=== PATIENT | male | born 1950 | race Caucasian/White ===

== ENCOUNTER 2020-09-04 10:00 | Outpatient (RCR) | payer MEDICARE, SELFPAY ==
--- NOTE | 2020-08-05 13:52 | PTOPEVAL ---
Thank you for referring Hugo Roberts to [facility].? The patient is scheduled to be seen for therapy? 2 x/week for 8 weeks. Please review, sign, date and return this plan of care BRODERICK. I agree with and certify that the following plan of care is medically necessary. Referring Physician Date Attending Provider: Yohana Cooper MD *PT Outpatient Evaluation Start: 08/05/20 12:30 Freq: Status: Active Protocol: Document 08/05/20 12:31 KEILY (Rec: 08/05/20 13:34 CAP [id number]) Therapy Assessment Status Assessment Status Assessment Status Evaluation Outpatient Past Medical History Past Medical History Source of Past Medical History Patient Neurological History Hx Neurological Disorders No Significant History Respiratory History Hx Bronchitis Yes Hx Sleep Apnea Yes: CPAP Gastrointestinal History Hx Gastroesophageal Reflux Disease Yes Musculoskeletal History Hx Joint Replacement Yes: left shoulder replacement 07/01, tod TKR Hx Other Musculoskeletal Disorders Yes: C5-6 bulging disc, C6-7 bulging Endocrine History Hx Diabetes Yes: type 2 Other History Hx Cancer Yes: nose Evaluation Information Problem Diagnosis neck pain with radicular symptoms, tod shoulder pain Onset Jul 2020 Cause lifting Subjective Information Progression of right UE Query Text:As Reported By Patient/ symptoms after building a wc Family ramp with lifting of ply wood. He C/o numbness and tingling from radiating from shoulder/ elbow region to last 3 fingers. He received cortison injection of right shoulder 07/23/20 with good relief of shoulder pain. He c/o increased right UE symptoms with lifting and carrying objects with right UE. Denies any pain or symptoms into left UE. Symptoms increased with repeated right UE activities. 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 The pain was waking him prior to the injection. Denies problems with reaching activities. right shoulder: denies any
--- NOTE | 2020-09-02 09:06 | PCPTNOTE ---
Patient called & cancelled scheduled appointment this date due to bad weather.
--- NOTE | 2020-09-04 11:00 | PTOPEVAL ---
Thank you for referring Hugo Roberts to [facility].? The patient has been seen for 7 therapy visits to address neck and shoulder limitations. He demonstrates improved symptoms and pain. Improved tolerance with daily activities, but limited changes with joint motion. He is indep with his home exercise program at this time. He has reached maximal potential with skilled therapy services at this time. DC skilled PT with pt to continue with home program. Please review, sign, date and return discharge summary. I agree with and certify that the following plan of care is medically necessary. Referring Physician Date Attending Provider: Yohana Cooper Physical Therapy Discharge Note Problem Diagnosis neck pain with radicular symptoms, tod shoulder pain Onset Jul 2020 Cause lifting Additional Evaluation Detail He received cortison injection of right shoulder 07/23/20 with good relief of shoulder pain. Subjective Information He reports cont tingling/ Query Text:As Reported By Patient/ numbness of last 3 fingers, Family but decreased raditing symptoms from elbow region. He denies increased right UE symptoms with lifing and carrying objects with right UE. He has neck tightness with prolonged sitting > 1 hr. right shoulder: denies any pain of right shoulder with reaching, carrying or heavier household activities. Improved tenderness of ant and post aspect of shoulder joint. left shoulder: c/o chronic weakness of left shoulder and tenderness of left bicep as residual effect of his shoulder surgery in 2014. Pain Assessment Right Arm(s) Reported Pain Level 0 Pain Description Aching Pain Frequency Intermittent Greatest Pain Intensity 1 Pain Aggravating Factors Exercise/Activity Bilateral Neck Reported Pain Level 0 Pain Frequency Intermittent Lowest Pain Intensity 0 Greatest Pain Intensity 0 Left Shoulder(s) Reported Pain Level 1 Cervical and Lumbar ROM Cervical Flexion (0-60) 70 Query Text:Active in Degrees Cervical Extension (0-70) 60 Query Text:Active in Degrees Cervical Lateral Flexion Right (0-50) 18 Query Text:Active in Degrees Cervical Lat
== END 2020-09-04 14:25 | disposition home or self-care (01) ==
LOC: ANHPT 10:00
PROVIDERS: PCP Internal Medicine
DX: M54.2 Cervicalgia (principal); M54.12 Radiculopathy, cervical region; M67.912 Unspecified disorder of synovium and tendon, left shoulder; M25.511 Pain in right shoulder; M25.512 Pain in left shoulder; M75.81 Other shoulder lesions, right shoulder; G89.29 Other chronic pain; Z96.612 Presence of left artificial shoulder joint
CPT/HCPCS: 97012; 97014; 97110; 97140; 97162; G0283

== ENCOUNTER 2021-03-16 00:40 | Day surgery (SDC) | payer MEDICARE, SELFPAY ==
[2021-03-04 12:38] VITALS: BMI 37.3
--- NOTE | 2021-03-13 15:43 | P.PNAN_ITS ---
Anes - Initial Pre Proc Eval Procedure: Operation Date: 03/16/21 08:00 Proposed Procedures p Screening Colonoscopy - Jae Amador MD Date/Time: 03/13/21 15:43 Surgeon: Jae Amador MD Pre Op Diagnosis: hx of colon polyps Patient Data Age: 71 Gender: M Height: 1.78 m Weight: 118.2 kg Allergies Allergy/AdvReac Type Severity Reaction Status Date / Time No Known Drug Allergies Allergy Mild Unknown Verified 03/16/21 06:47 Home Medications Medication Instructions Recorded Confirmed Type acai kowalski extract 500 mg capsule 500 mg PO DAILY 05/22/20 03/04/21 History ascorbate calcium (vitamin C) 500 500 mg PO BID 05/22/20 03/04/21 History mg tablet lisinopril 20 mg tablet 20 mg PO DAILY 05/22/20 03/04/21 History loratadine 10 mg tablet 10 mg PO DAILY 05/22/20 03/04/21 History metformin 1,000 mg tablet 1,000 mg PO DAILY 05/22/20 03/04/21 History multivitamin,ka-qkdk-knboplns 1 tablet PO DAILY 05/22/20 03/04/21 History omeprazole 40 mg capsule,delayed 40 mg PO DAILY PRN 05/22/20 03/04/21 History release pravastatin 40 mg tablet 40 mg PO DAILY 05/22/20 03/04/21 History vit C,E,zinc,copper-bkcmw2q 250 1 cap PO DAILY 05/22/20 03/04/21 History mg-lutein 5 mg-zeaxanthin 1 mg capsule azelastine 1 spray INTRANASAL Q12H PRN 03/04/21 03/04/21 History fluticasone propionate 2 spray INTRANASAL BID PRN 03/04/21 03/04/21 History Patient hx anesthesia problems: none Family hx anesthesia problems: none [facility] Past Medical History Medical History (Updated 03/13/21 @ 15:44 by Artis Zepeda DO) Diabetes type 2, controlled GERD (gastroesophageal reflux disease) Hyperlipidemia Hypertension KOBE (obstructive sleep apnea) Surgical History Surgical History (Updated 03/13/21 @ 15:44 by Artis Zepeda DO) History of cholecystectomy Family History Family History Father Cerebrovascular accident Sibling Malignant neoplasm of prostate Mother Diabetes mellitus Other Family history of multiple sclerosis Social History Social History Smoking packs per day: 2 Smoking cigarettes per day: 40.0 Years smoked: 30 Smoking pack-years: 60.00 Smoking status: Former smoker Tobacco type: cigarettes Second hand tobacco smoke exposure: No Smoking end date: 07/18/89 Alcohol intake: former Substance use: never Substance use type: does not use Living arrangements: with family Spiritual care concerns: No Anes - Eval Final PreProcedure Day of Procedure 03/13/21 15:43 Patient weight: obese Heart: regular rate and rhythm Lungs: clear to auscultation and normal air movement Airway: Mallampati scale class II Neurological: alert and oriented Last oral intake: >/= 8 hours ASA classification: III Emergent: no Anesthetic plan: proceed Anesthesia type and monitoring: general GIVS and standard monitoring Informed Consent: The patient's anesthetic plan and its attendant risks and benefits were discussed with the patient/family/POA. Questions were solicited and answers provided to the satisfaction of the patient/family/POA.
[2021-03-16 06:50] VITALS: BP 143/93; PULSE 58; RESP 20; TEMP 36.1; O2SAT 97; BMI 37.0
--- NOTE | 2021-03-16 07:09 | PM.HPGS ---
History of Present Illness History of Present Illness Consent: Risks, benefits, and alternatives have been discussed and questions answered. Patient agrees to proceed with procedure. Chief complaint: hx of colon polyps Narrative: Hugo Roberts is a 71 year old male has had a change in bowel habits. His stools have been very loose for the past year or so. He does take metformin which may be a factor in fact when he stopped taking that on a trip his bowel movements were more normal. He has history of having had polyps removed in the past. Review of Systems Review of Systems: All systems reviewed & are unremarkable except as noted in HPI and below PMFSH Past Medical History Medical History Diabetes type 2, controlled GERD (gastroesophageal reflux disease) Hyperlipidemia Hypertension KOBE (obstructive sleep apnea) Surgical History Surgical History History of cholecystectomy Family History Family History Father Cerebrovascular accident Sibling Malignant neoplasm of prostate Mother Diabetes mellitus Other Family history of multiple sclerosis Social History Social History Smoking packs per day: 2 Smoking cigarettes per day: 40.0 Years smoked: 30 Smoking pack-years: 60.00 Smoking status: Former smoker Tobacco type: cigarettes Second hand tobacco smoke exposure: No Smoking end date: 07/18/89 Alcohol intake: former Substance use: never Substance use type: does not use Living arrangements: with family Spiritual care concerns: No Meds Home Medications and Allergies Home Medications Medication Instructions Recorded Confirmed Type acai kowaslki extract 500 mg capsule 500 mg PO DAILY 05/22/20 03/16/21 History ascorbate calcium (vitamin C) 500 500 mg PO BID 05/22/20 03/16/21 History mg tablet lisinopril 20 mg tablet 20 mg PO DAILY 05/22/20 03/16/21 History loratadine 10 mg tablet 10 mg PO DAILY 05/22/20 03/16/21 History metformin 1,000 mg tablet 1,000 mg PO DAILY 05/22/20 03/16/21 History multivitamin,oh-jggg-vpbwdiec 1 tablet PO DAILY 05/22/20 03/16/21 History omeprazole 40 mg capsule,delayed 40 mg PO DAILY PRN 05/22/20 03/16/21 History release pravastatin 40 mg tablet 40 mg PO DAILY 05/22/20 03/16/21 History vit C,E,zinc,copper-umcer1k 250 1 cap PO DAILY 05/22/20 03/16/21 History mg-lutein 5 mg-zeaxanthin 1 mg capsule azelastine 1 spray INTRANASAL Q12H PRN 03/04/21 03/16/21 History fluticasone propionate 2 spray INTRANASAL BID PRN 03/04/21 03/16/21 History Allergies Allergy/AdvReac Type Severity Reaction Status Date / Time No Known Drug Allergies Allergy Mild Unknown Verified 03/16/21 06:47 Vital Signs Vital Signs - 24 hr 03/16/21 06:50 Temperature 36.1 C L Pulse Rate 58 L Respiratory Rate 20 Blood Pressure 143/93 H Pulse Oximetry 97 Exam Resp: Auscultation: clear to auscultation bilaterally Cardio: Rate: regular rate Rhythm: regular rhythm GI: GI Palp: Yes Soft to palpation and No Tenderness to palpation present (GI) Assessment and Plan Assessment and plan (1) Chronic diarrhea: Code(s): K52.9 - Noninfective gastroenteritis and colitis, unspecified Status: Acute Assessment and Plan: Colonoscopy with possible biopsy or polypectomy or cautery or injection of substances.
[2021-03-16] MEDS: LACTATED RINGERS 1,000 ML 150 ML IV CONT (07:13)
[2021-03-16 07:19] LABS: Glucose Point of Care 135 mg/dl (65-105)
[2021-03-16] MEDS: SIMETHICONE ORAL SUSPENSION 20 MG/0.3 ML 30 ML BOTTLE 0.6 ML IRRIGATION (08:11)
[2021-03-16 08:20] VITALS: BP 127/84; PULSE 74; RESP 20; O2SAT 98
[2021-03-16 08:30] VITALS: BP 119/47; PULSE 78; RESP 18; O2SAT 99
[2021-03-16 08:40] VITALS: BP 126/76; PULSE 72; RESP 20; O2SAT 100
== END 2021-03-16 09:00 | disposition home or self-care (01) ==
PROVIDERS: PCP Internal Medicine; Visit Provider Internal Medicine Gastroenterology
PROC: 0DJD8ZZ Inspection of Lower Intestinal Tract, Via Natural or Artificial Opening Endoscopic (ICD-10-PCS; CPT 45378; principal; 2021-03-16 08:00)
DX: Z12.11 Encounter for screening for malignant neoplasm of colon (principal); D12.4 Benign neoplasm of descending colon; K59.1 Functional diarrhea; K57.30 Diverticulosis of large intestine without perforation or abscess without bleeding; E11.9 Type 2 diabetes mellitus without complications; K21.9 Gastro-esophageal reflux disease without esophagitis; I10 Essential (primary) hypertension; E78.5 Hyperlipidemia, unspecified; G47.33 Obstructive sleep apnea (adult) (pediatric); Z79.84 Long term (current) use of oral hypoglycemic drugs; E66.9 Obesity, unspecified; Z68.37 Body mass index [BMI] 37.0-37.9, adult
CPT/HCPCS: 45385; 45380; 82948; 88305; J2704; J7120

== ENCOUNTER → 2023-05-19 12:58 | Outpatient (CLI) | payer MEDICARE, SELFPAY ==
--- NOTE | ~2023-05-19 | CT_ITS ---
EXAMINATION: CT lumbar spine wo con DATE: 05/19/2023 13:15 INDICATION: Chronic low back pain. TECHNIQUE: Computed tomography (CT) of the lumbar spine was performed without intravenous contrast. A utomated exposure control and iterative reconstruction technique were employed. The dose-length produ ct was 918.81 mGy-cm. COMPARISON: None FINDINGS: There is 5 degrees dextrocurvature of lumbar spine. Vertebral body heights are normal. Ther e is mildly decreased disc height at L3-L4 and severely decreased disc height at L4-L5. The following disc levels are specifically discussed: L1-L2: The disc does not extend beyond the endplate margin. There is no facet joint osteoarthritis. T here is no neural foraminal stenosis. There is no central canal stenosis. L2-L3: There is a left foraminal protrusion. There is mild bilateral facet joint osteoarthritis. Ther e is mild left neural foraminal stenosis. There is no central canal stenosis. L3-L4: The disc is bulging. There is severe bilateral facet joint osteoarthritis. There is moderate b ilateral neural foraminal stenosis. There is mild central canal stenosis. L4-L5: The disc is bulging. There is severe bilateral facet joint osteoarthritis. There is moderate b ilateral neural foraminal stenosis. There is moderate central canal stenosis. L5-S1: The disc is bulging. There is severe bilateral facet joint osteoarthritis. There is moderate r ight and mild left neural foraminal stenosis. There is mild central canal stenosis. IMPRESSION: 1. Severe lumbar spondylosis. Reviewed, dictated and finalized at location E.
== END ==
PROVIDERS: PCP Internal Medicine; Visit Provider Internal Medicine
DX: M54.50 Low back pain, unspecified (principal); M47.896 Other spondylosis, lumbar region
CPT/HCPCS: 72131

== ENCOUNTER → 2023-06-17 09:44 | Outpatient (CLI) | payer MEDICARE, SELFPAY ==
--- NOTE | ~2023-06-17 | MR_ITS ---
MRI of the lumbar spine Clinical History: Back pain Technique: Axial T2-weighted images, and sagittal T1-weighted, T2-weighted, and T2 fat-sat images wer e acquired. Findings: There is no fracture of the lumbar spine. There is minimal grade 1 anterolisthesis of L4 ov er L5. No suspicious bone marrow signal abnormality seen. At L1-L2 and L2-L3, there is no significant disc bulge. There is mild to moderate facet arthropathy l evels. No spinal canal stenosis or neural foraminal narrowing at these levels. At L3-L4, there is diffuse disc bulge and advanced facet arthropathy, resulting in severe spinal krish l stenosis/thecal sac compression. There is moderate left neural foraminal narrowing, and moderate to severe right neural foraminal narrowing. At L4-L5, there is severe degenerative disc narrowing. There is disc bulge and severe facet arthropat hy, severe central canal stenosis/thecal sac compression. There is severe bilateral neural foraminal compromise. At L5-S1, there is right foraminal to right paracentral disc bulge with severe facet arthropathy. The re is right lateral recess stenosis and severe right neural foraminal compromise. Left neural foramen preserved. Paravertebral soft tissues are unremarkable. Impression: Severe degenerative spondylosis at L3-L4, L4-L5, and L5-S1, as detailed above. Minimal grade 1 anterolisthesis of L4 over L5. Reviewed, dictated and finalized at [facility] [place]. TURNER Impression: Severe degenerative spondylosis at L3-L4, L4-L5, and L5-S1, as detailed above. Minimal grade 1 anterolisthesis of L4 over L5.
== END ==
PROVIDERS: PCP Internal Medicine; Visit Provider Orthopaedic Surgery
DX: M46.1 Sacroiliitis, not elsewhere classified (principal); M47.26 Other spondylosis with radiculopathy, lumbar region
CPT/HCPCS: 72148

== ENCOUNTER 2023-07-12 12:27 | Emergency (ER) | payer MEDICARE, SELFPAY | END 2023-07-12 13:19 | disposition left against medical advice (07) | LOC: ANHED 12:57 | PROVIDERS: PCP Internal Medicine | DX: Z53.21 Procedure and treatment not carried out due to patient leaving prior to being seen by health care provider (principal) | CPT/HCPCS: 99199 ==

== ENCOUNTER → 2023-07-13 14:53 | Outpatient (CLI) | payer MEDICARE, SELFPAY ==
--- NOTE | ~2023-07-13 | XR_ITS ---
EXAMINATION: XR chest 2V 07/13/2023 15:03 INDICATION: Acute upper respiratory infection PROCEDURE: 2 view chest COMPARISON: 01/19/2010 FINDINGS: The lungs are clear. The cardiomediastinal silhouette is within normal limits. There are no pleural effusions. There is no pneumothorax suspected. IMPRESSION: 1: NO ACUTE CARDIOPULMONARY DISEASE. Reviewed, dictated and finalized at location B. [employer] SALES ASSISTANT
== END ==
PROVIDERS: PCP Nurse Practitioner Adult Health; Visit Provider Nurse Practitioner Adult Health
DX: J06.9 Acute upper respiratory infection, unspecified (principal)
CPT/HCPCS: 71046

== ENCOUNTER 2024-07-30 12:34 | Outpatient (CLI) | payer MEDICARE, SELFPAY ==
--- NOTE | ~2024-07-30 | XR_ITS ---
CHEST RADIOGRAPH, PA AND LATERAL CLINICAL HISTORY: Dyspnea . COMPARISON: 07/13/2023 TECHNIQUE: PA and lateral views of the chest. FINDINGS The cardiomediastinal silhouette is unremarkable. The lungs are clear. Visualized osseous structures and soft tissues are unremarkable. IMPRESSION: No focal infiltrate or effusion. Reviewed, dictated and finalized at location A. SEWER
== END 2024-07-30 12:35 | disposition home or self-care (01) ==
LOC: MICIMG 12:37
PROVIDERS: PCP Internal Medicine; Visit Provider Internal Medicine
DX: R06.00 Dyspnea, unspecified (principal)
CPT/HCPCS: 71046

== ENCOUNTER 2025-05-30 13:55 | Outpatient (CLI) | payer MEDICARE, SELFPAY ==
--- NOTE | ~2025-05-30 | XR_ITS ---
EXAMINATION: XR chest 2V, 05/30/2025 14:02 RN INTERN HISTORY: chronic cough x 3 weeks, congestion, sob COMPARISON: No comparisons available. Technique: 2 views obtained. Findings: The lungs are clear, no effusion. No pneumothorax. Heart is normal size. Mediastinal and hilar contours are within normal limits. Bony thorax no acute abnormality. Impression: No acute cardiopulmonary abnormality. Reviewed, dictated and finalized at location P. INTERN Impression: No acute cardiopulmonary abnormality.
== END 2025-05-30 13:56 | disposition home or self-care (01) ==
PROVIDERS: PCP Internal Medicine Pulmonary Disease
DX: R05.3 Chronic cough (principal)
CPT/HCPCS: 71046